=== PATIENT | female | born 1955 | race Asian ===

== ENCOUNTER 2020-11-09 17:20 | Emergency (ER) | payer MEDICARE, OTHER ==
[~2020-11-09] VITALS: Ht 160 cm; Wt 63.5 kg
[2020-11-09 17:20] VITALS: BP_SYST 141
[2020-11-09 17:45] LABS: BILIRUBIN,URINE NEGATIVE (NEGATIVE); CLARITY/URINE CLEAR (CLEAR); GLUCOSE,URINE NEGATIVE (NEGATIVE); KETONES,URINE NEGATIVE (NEGATIVE); LEUKOCYTE ESTERASE ,URINE NEGATIVE (NEGATIVE); NITRITE, URINE NEGATIVE (NEGATIVE); PH,URINE 6.5 (5.0-8.0); PROTEIN URINE NEGATIVE (NEGATIVE); UROBILINOGEN,URINE 0.2 (0.2-1.0)
[2020-11-09] MEDS ORDERED: ONDANSETRON 4 MG ODT TAB PO ONE (17:45)
[2020-11-09] MEDS ORDERED: MORPHINE 4 MG INJ. 4 MG/ML VIAL IM ONE (17:45)
[2020-11-09 17:58] LABS: BLOOD, URINE TRACE (NEGATIVE); COLOR,URINE STRAW (YELLOW)
[2020-11-09 18:25] LABS: BACTERIA,URINE RARE /HPF (None Seen); MUCUS,URINE None Seen /LPF (None Seen); RBC,URINE 0-3 /HPF (0-3); WBC,URINE NONE SEEN /HPF (0-3)
[2020-11-09 18:34] LABS: BASOPHILS % (AUTO) 0.2 % (0.0-2.0); EOSINOPHILS # (AUTO) 0.1 K/uL (0.0-0.4); EOSINOPHILS % (AUTO) 1.6 % (0.0-4.0); HEMOGLOBIN 13.2 g/dL (12.0-16.0); LYMPHOCYTES # (AUTO) 1.2 K/uL (1.0-5.5); LYMPHOCYTES % (AUTO) 18.8 % (20.5-51.5); MEAN CORPUSCULAR HEMOGLOBIN 32 pg (27-31); MEAN CORPUSCULAR HGB CONC 35 % (32-36); MEAN CORPUSCULAR VOLUME 93 fL (79.0-98.0); MONOCYTES # (AUTO) 0.7 K/uL (0.0-1.0); MONOCYTES % (AUTO) 10.6 % (1.7-9.3); NEUTROPHILS # (AUTO) 4.3 K/uL (1.8-7.7); NEUTROPHILS % (AUTO) 68.8 % (40.0-70.0); PLATELET COUNT (AUTO) 188 K/uL (130-430); RED BLOOD CELL COUNT(AUTO) 4.08 MIL/uL (4.2-6.2); RED CELL DISTRIBUTION WIDTH 12.3 % (9.0-15.0); WHITE BLOOD COUNT (AUTO) 6.2 K/uL (4.8-10.8)
[2020-11-09 18:49] LABS: ANION GAP 5 (5-15); CALCIUM 8.8 mg/dL (8.4-11.0); CHLORIDE 88 mmol/L (98-107); CREATININE 1.11 mg/dL (0.55-1.30); GLUCOSE 112 mg/dL (70-99); POTASSIUM 5.4 mmol/L (3.5-5.1); SODIUM SERUM 120 mmol/L (136-145); UREA NITROGEN, BLOOD 23 mg/dL (8-21)
[2020-11-09 18:50] LABS: PROTHROMBIN TIME 9.8 SECS (9.5-12.5)
[2020-11-09 18:52] LABS: GFR AFRICAN AMERICAN 63 mL/min (>90)
[2020-11-09 18:57] LABS: C-REACTIVE PROTEIN QUANT < 0.2 mg/dL (0-0.5)
[2020-11-09 19:02] LABS: ALANINE AMINOTRANSFERASE 30 U/L (12-78); ALBUMIN 3.9 g/dL (3.4-4.8); AMYLASE 93 U/L (0-100); ASPARTATE AMINOTRANSFERASE 23 U/L (10-37); LACTATE DEHYDROGENASE 191 U/L (81-234); LIPASE 881 U/L (73-393); TOTAL BILIRUBIN 0.4 mg/dL (0.0-1.0)
[2020-11-09] MEDS ORDERED: NS 500 ML IV ONE (19:30)
[2020-11-09 21:36] VITALS: BP_SYST 145
== END 2020-11-09 21:36 | disposition short-term general hospital (02) ==
LOC: EDBD 17:20 → SED 17:20
DX: K86.2 Cyst of pancreas (principal); E87.1 Hypo-osmolality and hyponatremia; R11.2 Nausea with vomiting, unspecified; Z88.8 Allergy status to other drugs, medicaments and biological substances
CPT/HCPCS: 36415; 80053; 81000; 82150; 83605; 83615; 83690; 84484; 85025; 85610; 85730; 86140; 93005; 96360; 99284; J2270; J7030; Q0162